=== PATIENT | male | born 1995 | race Caucasian/White ===

== ENCOUNTER 2016-10-24 03:51 | Emergency (ER) | payer OTHER ==
[2016-10-24 04:06] LABS: BASOPHIL% 0.1 % (0-2.5); DIFF IND YES; EOSINOPHIL% 0.1 % (0.0-7.0); HEMATOCRIT 49.2 % (38.0-50.0); HEMOGLOBIN 16.6 gm/dL (13.0-16.0); LYMPHOCYTE# 0.4 X10e3 (1.0-3.5); LYMPHOCYTE% 2.5 % (17.0-45.0); MEAN CELL VOLUME 89.8 FL (83-96); MEAN CORPUSCULAR HEMOGLOBIN 30.4 PG (28-34); MEAN CORPUSCULAR HGB CONC 33.8 g/dL (30-36); MEAN PLATELET VOLUME 9.8 FL (6.5-11.5); MONOCYTE# 0.9 X10e3 (0-1.0); MONOCYTE% 5.6 % (3.0-12.0); NEUTROPHIL% 91.7 % (40-75); PLATELET COUNT 175 X10e3 (140-420); RED BLOOD COUNT 5.48 X10e (3.90-5.60); RED CELL DISTRIBUTION WIDTH 12.4 % (11.0-15.5); WHITE BLOOD COUNT 16.4 X10e3 (4.0-10.5)
[2016-10-24 04:31] LABS: PLATELET ESTIMATE NORMAL (NORMAL)
[2016-10-24 04:58] LABS: ALBUMIN SERUM 5.1 g/dL (3.5-5.0); BILIRUBIN, DIRECT 0.2 mg/dL (0.0-0.2); BILIRUBIN,INDIRECT 1.3 mg/dL (0.0-0.9); BILIRUBIN,TOTAL 1.5 mg/dL (0.2-2.0); CALCIUM SERUM 9.9 mg/dL (8.4-10.2); GLOM FILT RATE Estimated 107.9 mL/min (>60); POTASSIUM 4.1 mmol/L (3.5-5.1); PROTEIN TOTAL SERUM 9.1 g/dL (6.0-8.3)
== END 2016-10-24 07:03 | disposition home or self-care (01) ==
LOC: CED 03:51
PROVIDERS: Nurse Practitioner Family
DX: K52.9 Noninfective gastroenteritis and colitis, unspecified (principal)
CPT/HCPCS: 36415; 80048; 80076; 83690; 85025; 96361; 96374; 96375; 99284; J1885; J2405; J2765

== ENCOUNTER 2016-12-03 16:22 | Emergency (ER) | payer OTHER ==
--- NOTE | ~2016-12-03 | CT2 ---
[facility] A Service of [facility] & [facility] RADIOLOGY TEXT RESULTS PATIENT: BEN ANGELA LOCATION: [facility] : 95 UNIT #: [id number] AGE: [address]: Rosa Hogan MD SEX: M ORDER DR: [id number] [facility] [address] [place], [place] [address] [id number] E MR#: [id number] Acc #: [id number] NAME: BEN ANGELA. : 1995 SEX: M STUDY DATE/TIME: 12/03/2016 20:54 UNIT: [facility] ROOM: STUDY DESCRIPTION: CT Abd and Pelv W Cont Attending Physician: Rosa Hogan M.D. Ordering Physician: Rosa Hogan M.D. Primary Care Physician: Jayshree Hickman M.D. MEDICAL IMAGING REPORT This report is preliminary unless electronic signature is present EXAM CT abdomen and pelvis, 12/03/2016 HISTORY Abdominal pain and nausea for 1 day. Mid epigastric pain. TECHNIQUE CT of the abdomen and pelvis performed with administration of oral and intravascular contrast. Patient received 100 mL Isovue-370. This CT exam was performed with one or more of the following radiation dose reduction techniques: automatic exposure control, adjustment of mA and/or kV according to patient size, and iterative reconstruction. COMPARISON No comparisons. FINDINGS The lung bases are clear. The inferior heart and pericardium unremarkable. Gallbladder, liver, spleen, small accessory spleen, pancreas, adrenal glands unremarkable. Mild right pyelocaliectasis. No obstructing process seen. Likely normal physiologic state for this patient. No acute appearing renal abnormalities. Urinary bladder is moderately distended measuring up to about 11.4 cm in diameter. Probably physiologic. Correlate clinically. No focal bladder wall abnormality is seen. There is no pelvic or retroperitoneal adenopathy. No abnormal fluid collection. There is moderate gastric distension with food debris, air and contrast material. No suspicious obstructing process is seen. There is contrast passage into the small bowel. Appearance of stomach likely reflects ingestion of the oral contrast bolus. Correlate with any clinical concern for gastroparesis. Small bowel unremarkable. The appendix extends cephalad along the anterior aspect of the cecum. It measures about 9.0 mm in diameter. There is no periappendiceal STS. [facility] A Service of [facility] & [facility] RADIOLOGY TEXT RESULTS PATIENT: BEN ANGELA LOCATION: [facility] : 95 UNIT #: [id number] AGE: [address]: Rosa Hogan MD SEX: M ORDER DR: inflammatory change or fluid. There is no compelling evidence of appendicitis. Correlate with laboratory data and clinical examination. Colon. Vascular structures are unremarkable. Bony structures show no acute abnormality. IMPRESSION 1. Moderate gastric distension with food debris, contrast material and air. No obstructing process is seen and there is passage of contrast material into small bowel. The appearance of the stomach could be a reflection of mild gastritis and resultant gastric atony. Correlate with any clinical indicators of chronic gastroparesis. The appearance probably also reflects to some degree ingestion of oral contrast bolus. 2. The appendix is at upper limits of normal in thickness at about 9.0 mm in diameter with no adjacent inflammatory change. There is no compelling CT evidence of appendicitis. Correlate with laboratory data and clinical examination. Weight should be given clinical assessment. 3. Gallbladder, pancreas unremarkable. 4. Mild right pyelocaliectasis with no obstructing process seen. Probably normal state for this patient. 5. Mild urinary bladder distension likely physiologic. No focal bladder wall abnormality seen. Correlate clinically. 1. Dictated by... Julián Lagunas M.D. THIS IS AN ELECTRONICALLY VERIFIED REPORT Julián Lagunas M.D. at 12/05/2016 5:18 PM Jean-Claude TD: 12/04/2016 08:57 JOB #: [id number] MEDICAL IMAGING REPORT Page 1 of 1 COPY
[2016-12-03 17:25] LABS: BASOPHIL% 0.2 % (0-2.5); DIFF IND NO; EOSINOPHIL% 0.2 % (0.0-7.0); HEMATOCRIT 44.6 % (38.0-50.0); LYMPHOCYTE# 1.6 X10e3 (1.0-3.5); LYMPHOCYTE% 12.4 % (17.0-45.0); MEAN CELL VOLUME 89.7 FL (83-96); MEAN CORPUSCULAR HEMOGLOBIN 30.3 PG (28-34); MEAN CORPUSCULAR HGB CONC 33.7 g/dL (30-36); MEAN PLATELET VOLUME 9.2 FL (6.5-11.5); MONOCYTE# 0.9 X10e3 (0-1.0); MONOCYTE% 6.7 % (3.0-12.0); NEUTROPHIL# 10.6 X10e3 (1.5-7.1); NEUTROPHIL% 80.5 % (40-75); PLATELET COUNT 191 X10e3 (140-420); RED BLOOD COUNT 4.97 X10e (3.90-5.60); RED CELL DISTRIBUTION WIDTH 13.3 % (11.0-15.5); WHITE BLOOD COUNT 13.2 X10e3 (4.0-10.5)
[2016-12-03 17:43] LABS: ALBUMIN SERUM 4.9 g/dL (3.5-5.0); BILIRUBIN, DIRECT 0.2 mg/dL (0.0-0.2); BILIRUBIN,INDIRECT 0.9 mg/dL (0.0-0.9); BILIRUBIN,TOTAL 1.1 mg/dL (0.2-2.0); CALCIUM SERUM 9.5 mg/dL (8.4-10.2); GLOM FILT RATE Estimated 107.1 mL/min (>60); PROTEIN TOTAL SERUM 8.4 g/dL (6.0-8.3)
[2016-12-03 19:35] LABS: URINE SOURCE CLEAN CATCH
[2016-12-03 19:40] LABS: URINE APPEARANCE CLEAR; URINE BILIRUBIN NEG (NEG); URINE BLOOD NEG (NEG); URINE COLOR YELLOW; URINE GLUCOSE NEG (NEG); URINE KETONE NEG (NEG); URINE LEUKOCYTE ESTERASE NEG (NEG); URINE NITRATE NEG (NEG); URINE PROTEIN NEG (NEG)
[2016-12-03 19:51] LABS: AMPHETAMINE NEG (NEG); BARBITURATES NEG (NEG); BENZODIAZEPINES NEG (NEG); COCAINE NEG (NEG); MARIJUANA NEG (NEG); OPIATES NEG (NEG); TRICYCLIC ANTIDEPRESSANTS NEG (NEG); U METHADONE NEG (NEG)
[2016-12-03 19:57] LABS: CULTURE INDICATED? NO
== END 2016-12-03 23:08 | disposition home or self-care (01) ==
LOC: CED 16:22
PROVIDERS: Student in an Organized Health Care Education/Training Program
DX: K29.70 Gastritis, unspecified, without bleeding (principal)
CPT/HCPCS: 36415; 74177; 80048; 80076; 80307; 81003; 82947; 83690; 85025; 86677; 96374; 96375; 99284; C9113; G0480; J2270; J2405; Q9967

== ENCOUNTER → 2016-12-06 | Outpatient (CLI) | payer OTHER ==
--- NOTE | ~2016-12-06 | CR109 ---
[facility] A Service of [facility] & [facility] RADIOLOGY TEXT RESULTS PATIENT: BEN ANGELA LOCATION: [facility] : 95 UNIT #: [id number] AGE: [address]: Jayshree Hickman MD SEX: M ORDER DR: [id number] [facility] [address] [place], [place] [address] [id number] O MR#: [id number] Acc #: [id number] NAME: BEN ANGELA : 1995 SEX: M STUDY DATE/TIME: 12/06/2016 14:47 UNIT: [facility] ROOM: STUDY DESCRIPTION: CR Finger 2 View 2nd Rt Attending Physician: Jayshree Hickman M.D. Referring Physician: Jayshree Hickman M.D. Ordering Physician: Jayshree Hickman M.D. Primary Care Physician: Jayshree Hickman M.D. MEDICAL IMAGING REPORT This report is preliminary unless electronic signature is present EXAM Right second finger HISTORY Trauma to right second digit. Evaluate for possible fracture. Slammed second finger in car door 5 days ago. FINDINGS Three views of the right second digit demonstrates soft tissue swelling near the expected base of the nail bed but no evidence of fracture. Joint space is maintained. Bone mineralization appears normal. IMPRESSION Soft tissue swelling over the dorsal aspect of the distal finger near the base of the nail bed. No visible fracture. Dictated by... Bella Tyson M.D. THIS IS AN ELECTRONICALLY VERIFIED REPORT Bella Tyson M.D. at 12/11/2016 2:13 PM Pilar TD: 12/07/2016 08:19 JOB #: [id number] MEDICAL IMAGING REPORT Page 1 of 1 COPY
== END | disposition home or self-care (01) ==
LOC: CRAD 14:23
DX: S67.190A Crushing injury of right index finger, initial encounter (principal)
CPT/HCPCS: 73140